=== PATIENT | female | born 1985 | race Two or more races ===

== ENCOUNTER 2019-01-29 09:42 | Outpatient (CLI) | payer BC | END 2019-01-29 09:58 | disposition home or self-care (01) | LOC: LAB 09:42 | DX: Z34.82 Encounter for supervision of other normal pregnancy, second trimester (principal) ==

== ENCOUNTER 2019-03-02 09:13 | Outpatient (CLI) | payer BC | END 2019-03-02 09:18 | disposition home or self-care (01) | LOC: LAB 09:13 | DX: Z34.82 Encounter for supervision of other normal pregnancy, second trimester (principal) ==

== ENCOUNTER 2019-04-09 09:11 | Outpatient (CLI) | payer BC | END 2019-04-09 15:00 | disposition home or self-care (01) | LOC: LAB 09:11 | DX: Z34.83 Encounter for supervision of other normal pregnancy, third trimester (principal) ==

== ENCOUNTER 2019-04-09 10:39 | Inpatient (IN) | payer BC ==
[~2019-04-09] VITALS: Ht 157.5 cm; Wt 73.5 kg
== END 2019-05-02 11:50 | disposition home or self-care (01) | DRG 807 ==
LOC: OB/GYN 04-30 12:28 → LDR 04-30 12:28 → OB/GYN 04-30 22:38 → LDR 05-06 07:45
PROVIDERS: ADMIT Obstetrics & Gynecology Maternal & Fetal Medicine
PROC: 10E0XZZ Delivery of Products of Conception, External Approach (ICD-10-PCS; principal; 2019-04-30)
PROC: 0HQ9XZZ Repair Perineum Skin, External Approach (ICD-10-PCS; 2019-04-30)
PROC: 3E033VJ Introduction of Other Hormone into Peripheral Vein, Percutaneous Approach (ICD-10-PCS; 2019-04-30)
PROC: 10907ZC Drainage of Amniotic Fluid, Therapeutic from Products of Conception, Via Natural or Artificial Opening (ICD-10-PCS; 2019-04-30)
PROC: 4A1HXCZ Monitoring of Products of Conception, Cardiac Rate, External Approach (ICD-10-PCS; 2019-04-30)
DX: O70.0 First degree perineal laceration during delivery (principal); Z37.0 Single live birth; Z3A.39 39 weeks gestation of pregnancy

== ENCOUNTER 2019-04-16 10:05 | Outpatient (CLI) | payer BC | END 2019-04-16 10:50 | disposition home or self-care (01) | LOC: NST 10:05 | DX: Z34.83 Encounter for supervision of other normal pregnancy, third trimester (principal) ==

== ENCOUNTER 2019-04-20 07:46 | Outpatient (CLI) | payer BC | END 2019-04-20 08:19 | disposition home or self-care (01) | LOC: NST 07:46 | DX: Z34.83 Encounter for supervision of other normal pregnancy, third trimester (principal); O09.73 Supervision of high risk pregnancy due to social problems, third trimester ==

== ENCOUNTER 2019-04-23 07:36 | Outpatient (CLI) | payer BC | END 2019-04-23 08:27 | disposition home or self-care (01) | LOC: NST 07:36 | DX: Z34.83 Encounter for supervision of other normal pregnancy, third trimester (principal) ==

== ENCOUNTER 2019-04-27 12:44 | Outpatient (CLI) | payer BC | END 2019-04-27 13:01 | disposition home or self-care (01) | LOC: NST 12:44 | DX: Z34.83 Encounter for supervision of other normal pregnancy, third trimester (principal) ==